=== PATIENT | female | born 1955 | race Caucasian/White ===

== ENCOUNTER 2024-12-18 22:10 | Inpatient (IN) | payer MEDICARE, SELFPAY ==
[2024-12-18 19:35] VITALS: BMI 37.2
[2024-12-18 19:37] VITALS: BP 172/83
[2024-12-18 19:41] VITALS: BP 172/83
--- NOTE | 2024-12-18 19:43 | ED.CVA ---
History of Present Illness
General
Chief Complaint: CVA/TIA Symptoms
Time Seen by Provider: 12/18/24 19:37
Onset of Stroke Symptoms
Onset of symptoms known: No
Time pt last seen normal is known: No
History of Present Illness
History of Present Illness:
Patient is a 69-year-old female with a history of alcohol use disorder who presents to the emergency department with altered mental status and left-sided neurologic symptoms. Unknown last well as patient does not endorse any neurologic symptoms.
She states she fell off of her chair today and called 911. She was last seen on Wednesday. Notes daily alcohol use last drink was today. She did not realize that she had loss of sensation on the left side of her body. Patient is a poor historian
Past History
Past History
ED Past Medical History: Hypercholesterolemia, Hypothyroidism and Other (Hyperlipidemia, diverticulosis, diverticulitis.)
Social History
Tobacco: Non-smoker
Alcohol: Occasional
Drug: None
Personal:
Living: with family
Employment: Employed
Family History
Family History: Other (Noncontributory)
Phy Exam
Physical Exam
Physical Exam:
GENERAL APPEARANCE: NAD, well developed/ well nourished
EYES lids/conjunctiva normal
EARS/NOSE/THROAT Mucous membranes moist,
HEAD/NECK normocephalic atraumatic, neck is supple.
RESPIRATORY respiratory effort normal, speaks in full sentences, no accessory muscle use. Lungs clear to auscultation without rhonchi, wheezes, rales
CARDIAC Regular rate and rhythm, no edema.
ABDOMINAL Soft, ND/NT.
MUSCLES/EXTREMITIES No abnormal range of motion, no swelling.
SKIN Warm, pink and dry. No rashes
NEUROLOGICAL patient is awake alert and oriented x 3. Cranial nerves II through XII are intact. She has 5 out of 5 pattern cleaner strength bilaterally. She has poor coordination with her left upper and lower extremity. She has loss of sensation to the
left upper and lower extremity as well as her trunk. There is ataxia to the left upper extremity and left lower extremity. There is hemiballismus/hemichorea in the LUE
PSYCH Normal mood and affect. Judgement/competence is appropriate
Course
Orders/Labs/Results
Orders:
Orders
12/18/24 19:35
Electrocardiogram (*1) Urgent
Reason for Study: TIA/Stroke
EKG- Treatment ONCE
12/18/24 19:45
Alcohol Urgent
Complete Blood Count/With Diff Urgent
Comprehensive Metabolic Panel Urgent
12/18/24 19:49
CT BRAIN PERF STROKE ALERT Urgent
Comment:
Reason For Exam: L sided hemisensory loss, ataxia
CT HEAD STROKE ALERT W/o Cont Urgent
Comment:
Reason For Exam: L sided hemisensory loss, ataxia
CT HEAD/NECK ANG STROKE ALERT Urgent
Comment:
Reason For Exam: L sided hemisensory loss, ataxia
0.9% Sodium Chloride 500 ml [Nss] 500 ml IV BOLUS
12/18/24 19:50
Electrocardiogram (*1) Stat
Reason for Study: Other
Other Reason for Exam: neuro symptoms
12/18/24 20:29
0.9% Sodium Chloride 1000 ml [Nss] 1,000 ml IV BOLUS
12/18/24 20:38
Urine Drug Abuse Screen Urgent
Date Specimen was Collected: 12/18/24
Time Specimen was Collected: 20:38
12/18/24 20:42
Urinalysis Reflex To Culture Urgent
Date Specimen was Collected: 12/18/24
Time Specimen was Collected: 20:38
Urine Microscopic Reflex Cult Urgent
12/18/24 20:48
Aspirin 325 mg PO NOW STA
Clopidogrel Bisulfate [Plavix] 600 mg PO NOW STA
12/18/24 21:31
Admit/Transfer Patient As Directed
Co-Sign Provider:
Level of Care: Inpatient admission
Assign to:: ICU
Physician / Group: avril austin
Diagnosis: CVA
Reason for Hospitalization: CVA
Expected length of stay greater than two midnights?: Yes
ELOS- Estimated Length of Stay in days: 3
I certify the patient meets the requirements for IP care: Yes
12/18/24 21:33
PRN Pain Medication Management As Directed
May give lesser potent ordered pain med per pt: Yes
preference::
Protocol:: Medication orders for pain may be administered in a
manner that supports deferring to patient preference
when the pt is:
- Requesting an ordered lesser potent pain medication.
Least to most potent pain medications are defined
as: acetaminophen < NSAID < tramadol < opioids
(morphine, oxycodone, hydromorphone).
- Requesting a lesser dose of the same medication IF
ORDERED.
- Requesting a less intrusive route of administration
if both routes are prescribed by the provider (PO <
IV).
12/18/24 21:34
Code Status As Directed
Resuscitation Status: Full Code
12/18/24 21:55
[employer] Consult Routine
Consulting Provider: Savita Milian
Was physician already notified: Yes
Abnormal Lab Results
12/18/24 12/18/24 12/18/24
19:45 19:51 20:42
Hgb 16.6 H g/dL
(12.0-16.0)
Hct 47.4 H %
(37.0-47.0)
MCV 100.4 H fL
(81.0-99.0)
MCH 35.2 H pg
(27.0-31.0)
Absolute Neuts (auto) 6.6 H 10^3/uL
(1.4-6.5)
Neutrophils % 78.2 H %
(42.2-75.2)
Lymphocytes % 13.8 L %
(20.5-51.1)
Carbon Dioxide 20 L mmol/L
(22-30)
Glucose 152 H mg/dl
(70-99)
Ur Occult Blood Reflex 2+ A
(Negative)
Urine RBC 3-6 A /HPF
(0-2)
Urine Bacteria (Reflex) Few A
(Negative)
Urine Albumin (Reflex) 2+ A
(Neg - Trace)
POC Glucose 154 H mg/dl
(70-99)
12/18/24 19:45
12/18/24 19:45
Vital Signs
Initial and Last Documented VS:
Initial Vital Signs
BP
172/83
12/18/24 19:37
Last Documented Vital Signs
Temp Pulse Resp BP Pulse Ox
98.3 F 73 15 174/89 97
12/18/24 19:40 12/18/24 22:45 12/18/24 22:45 12/18/24 22:04 12/18/24 22:30
*Pulse Oximetry
SaO2: 93
Oxygen Mode of Delivery: Room air
Patient hypoxic: no
*Critical Care Note
Total Time (30-74mins, 75-104mins- exclusive of procedures): Not Applicable
ED Attending Note
ED Attending Note
ED Attending Note:
Patient presents with left-sided sensory symptoms and coordination difficulty and possibly some neglect on the left. There is an unclear last known well. Stroke alert called on arrival. CT scan already showing evidence of right MCA infarct. CTA
showing occlusion of the right ICA. NIH stroke score is 5. Consulted [facility] neurostroke team, Dr. Lane. I reviewed the case and images with her. She states that given the lack of known last well as well as imaging findings already showing
stroke, she would not recommend TNK at this time. There is no intervention for IAT that she would recommend at this time given low NIH stroke scale and occlusion proximal to the M1 branch. She recommends dual antiplatelet therapy with loading of
Plavix and aspirin at this time. She recommends permissive hypertension. She feels that patient can stay at [facility].
-
Portions of this chart may have been created with voice recognition software.� Occasional wrong word or��sound alike� substitutions may have occurred due to the inherent limitations of voice recognition software.
Discharge Plan
Departure
Patient Disposition: Admit
Date of Disposition: 12/18/24
Time of Disposition: 20:53
Presentation/result/management discussed w/ accepting MD/DO: Hospitalist
Discharge Problem:
Acute CVA (cerebrovascular accident)
Interventions
Interventions:
*Risk Screen - Suicide Last Done: 12/18/24 19:42
*General Assessment Last Done: 12/18/24 19:42
*Neglect/Abuse Screening Last Done: 12/18/24 19:42
*ED COVID-19 Vaccine History Last Done: 12/18/24 19:42
ED- Cardiac Assessment Last Done: 12/18/24 20:48
ED- Neurological Assessment Last Done: 12/18/24 20:48
ED- Pulmonary Assessment Last Done: 12/18/24 20:48
ED Swallowing Screen Last Done: 12/18/24 21:02
[2024-12-18 19:53] LABS: Glucose - Point of Care 154 mg/dl (70-99)
[2024-12-18 19:55] LABS: Hematocrit 47.4 % (37.0-47.0); Hemoglobin 16.6 g/dL (12.0-16.0); Mean Corp Hgb Conc. 35.0 g/dL (33.0-37.0); Mean Corpuscular Volume 100.4 fL (81.0-99.0); Nucleated Red Blood Cells % 0 %; Platelet Count 188 10^3/uL (130-400); Red Cell Dist. Width 12.7 % (11.5-14.5)
[2024-12-18 20:21] LABS: ALT (SGPT) 20 U/L (0-35); AST (SGOT) 23 U/L (14-36); Albumin 4.7 g/dl (3.5-5.0); Alkaline Phosphatase 94 U/L (38-126); Blood Urea Nitrogen 9 mg/dl (7-17); Calcium 9.8 mg/dl (8.4-10.2); Carbon Dioxide 20 mmol/L (22-30); Chloride 107 mmol/L (98-107); Estimated Creatinine Clearance 100 ml/min; Glucose 152 mg/dl (70-99); Potassium 4.0 mmol/L (3.5-5.1); Sodium 137 mmol/L (135-145); Total Protein 7.5 g/dl (6.3-8.2); eGFR > 60.00
[2024-12-18] MEDS: NSS 1000 IV (20:29)
[2024-12-18 20:40] VITALS: BP 180/92
[2024-12-18 20:49] LABS: Urine Character Clear (Clear)
[2024-12-18 20:55] LABS: Urine White Cell 0-2 /HPF (0-5)
[2024-12-18 21:00] VITALS: BP 165/88
[2024-12-18] MEDS: ASPIRIN 325 MG PO (21:04)
[2024-12-18] MEDS: PLAVIX 600 MG PO (21:04)
--- NOTE | 2024-12-18 21:06 | HPS.HSE ---
Addendum entered and electronically signed by Preeti Monae DO 12/18/24 21:54:
The patient is seen and examined. I have reviewed the patient along with the nurse practitioner, Rach and I reviewed and agree with her history and physical and assessment and plan of care as per below. I spoke to the emergency department
physician about the patient as well. The patient's daughters are in the room with her. The patient fell out of a chair, earlier today and she is unable to tell exactly when. She called her daughter who noticed that her speech was slurred and they
called EMS. On arrival to the emergency department the patient was noted to have left-sided ataxia and hemiballism with sensory loss on the left side upper and lower extremity. She is found to have an acute moderate-sized transcortical ischemic
infarct in the right parietal lobe and a small acute transcortical ischemic infarct in the right frontal lobe associated with cytotoxic edema. CTA of the head and neck was performed which shows complete occlusion of the proximal right ICA, less
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
segment of the left posterior cerebral artery.
The ED provider spoke to stroke neurology at [facility], Dr. Lane, who said the patient is not a candidate for acute intervention at this time given her NIHSS score of 5, unknown last well, and location of the occlusion. The recommendation from [facility]
stroke neurology was for loading of Plavix and aspirin and permissive hypertension. The patient has been able to eat and drink in the emergency department, she currently has no aphasia nor slurred speech. She is unable to tell us the timing of
last known normal motor and sensory function. Of note, she drinks 16 ounces approximately of wine daily. She denies history of alcohol withdrawal seizures nor history of delirium tremens or hallucinations with alcohol withdrawal. She has gone
several days without drinking and has not had withdrawals in the past per the patient.
Vital signs reviewed blood pressure 172/83
Neuro exam left-sided upper and lower extremity hemiballism and sensory loss, motor strength is intact, cranial nerves II through XII are intact
Cardiovascular regular rate and rhythm no murmurs rubs or gallops
Lungs are clear to auscultation bilaterally no wheezes rales rhonchi
Abdomen is soft nontender normoactive bowel sounds
# Acute transcortical ischemic infarct of the right parietal lobe and right frontal lobe
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
-Admit to the intensive care unit overnight for close monitoring of neurologic status
- Continue aspirin and Plavix daily
-Neurochecks
-Permissive hypertension
-MRI of the head and neck
-Echocardiogram
-Neurology consultation appreciated
# Alcohol use disorder
-Monitor closely for alcohol withdrawal symptoms and treat accordingly
Additional assessment and plan of care as per below
Original Note:
Family Physician
-
Family Physician:
Chief Complaint
-
weakness
History of Present Illness
69-year-old female with a history of alcohol use disorder, hyperlipidemia, hypothyroidism, diverticulitis who presents to the emergency department because she fell off the chair. she was not able to get up from the floor. she called 911. denied WRIGHT,
dizzy or syncope.denied fever, chills,chest pain,sob. denied abdominal pain,n,v,d. denied dysuria or hematuria.
upon arrival head neck CTA with COMPLETE OCCLUSION of the PROXIMAL RIGHT ICA. Less than 50% diameter stenosis in the proximal left ICA. head CT with MODERATE SIZED ACUTE TRANSCORTICAL ISCHEMIC INFARCT in the right parietal lobe and small acute
transcortical ischemic infarct in the right frontal lobe (right middle cerebral artery territory) with associated cytotoxic edema.
Patient received aspirin, Plavix, normal saline in the ER. Admitted for further management
Medical History
Past Medical History
Past Medical History: Reports Other
Additional Past Medical History:
Hypothyroidism, hyperlipidemia
Past Surgical History: Reports Other
Additional Past Surgical History:
Left knee replacement, cataract surgery
Social History
Tobacco: Smoker (1 pack daily)
Alcohol: Daily
Drug: None
Personal: Single
Living: Alone
Family History
Family History: Not pertinent
Allergies / Home Medications
Allergies reflects when Allergies were last updated in [facility].
Home Medications with original date entered in [facility]
Allergy/Medication List:
Allergies
Allergy/AdvReac Type Severity Reaction Status Date / Time
No Known Allergies Allergy Unverified 05/29/14 16:08
Home Medications
levothyroxine 175 mcg tablet 175 mcg PO DAILY 05/29/14
simvastatin 40 mg tablet 40 mg PO DAILY 05/29/14
Review of Systems
-
Constitutional: Reports No Symptoms
EENT: Reports No Symptoms
Respiratory: Reports No Symptoms
Cardiac: Reports No Symptoms
Abdomen/GI: Reports No Symptoms
: Reports No Symptoms
Musculoskeletal: Reports No Symptoms
Skin: Reports No Symptoms
Neurological: Reports No Symptoms
Endocrine: Reports No Symptoms
Hematologic/Lymphatic: Reports No Symptoms
Psych: Reports No Symptoms
Physical Exam
Vital Signs
Vital Signs
Temp Pulse Resp BP Pulse Ox
98.3 F 77 20 172/83 93
12/18/24 19:40 12/18/24 20:15 12/18/24 20:15 12/18/24 19:41 12/18/24 20:00
Physical Exam
General: Well Developed, Well Nourished and No Apparent Distress
HEENT: NormoCephalic, Moist mucous membranes and Atraumatic
Respiratory: Clear
Cardiac: S1/S2 and Regular Rhythm; No Murmur or Rub
GI: Soft, Non Tender, Non Distended and Normal Bowel Sounds; No Organomegaly
Rectal: Deferred by Provider
Musculoskeletal: No Clubbing, No Cyanosis and No Edema
Skin: No Rash
Neuro: Nonfocal/grossly intact and Other (Involuntary left-sided movements)
Psych: Calm
Laboratory Results
-
12/18/24 19:45
12/18/24 19:45
Laboratory Results
Total Bilirubin 0.8 mg/dl (0.2-1.3) 12/18/24 19:45
AST 23 U/L (14-36) 12/18/24 19:45
ALT 20 U/L (0-35) 12/18/24 19:45
Alkaline Phosphatase 94 U/L (38-126) 12/18/24 19:45
Data Reviewed
-
CT Scan: Report Reviewed by me
Lab Data: Labs Reviewed by me
Impression/Plan
-
# Acute CVA
- CT head showing MODERATE SIZED ACUTE TRANSCORTICAL ISCHEMIC INFARCT in the right parietal lobe and small acute transcortical ischemic infarct in the right frontal lobe (right middle cerebral artery territory) with associated cytotoxic edema.
- CTA showing right ICA occlusion.Less than 50% diameter stenosis in the proximal left ICA.
- Aspirin and Plavix continued
- Obtain MRI and echocardiogram
-allow permissive HTN
- Neurology consulted
# Hypothyroidism
- Levothyroxine continued
# Hyperlipidemia
- Simvastatin continued
#alcohol abuse
-Nicotine dependence
-nicotine patch
-alcohol protocol
-monitor MSAS score
# DVT prophylaxis
- SCDs
# CODE STATUS
- Full code
[2024-12-18 22:04] VITALS: BP 174/89
[2024-12-18 23:35] LABS: Magnesium 2.0 mg/dl (1.6-2.3)
[2024-12-19] VITALS (14 sets, daily range): BP systolic 127–192; BP diastolic 65–130; PULSE 65; BMI 35.2
[2024-12-19] MEDS: THIAMINE INJECTION 200 MG IV ×3 (02:36→15:40)
--- NOTE | 2024-12-19 03:04 | PTCARENOTE ---
Pt admit to ICU from ED. NIH 3. Sensory issues, extinction/inattention, and slight ataxia in LUE/LLE. No slur on admit. Pt with frequent movement in LUE/LLE that pt's family states is new to tonight, tho improved since admission to ED. Refusing
nictoine patch overnight, states is open to getting one during the daytime. Voiding yellow urine.
[2024-12-19 04:17] LABS: Hematocrit 42.8 % (37.0-47.0); Hemoglobin 14.7 g/dL (12.0-16.0); Mean Corp Hgb Conc. 34.3 g/dL (33.0-37.0); Mean Corpuscular Volume 101.4 fL (81.0-99.0); Platelet Count 169 10^3/uL (130-400); Red Cell Dist. Width 12.6 % (11.5-14.5)
[2024-12-19 04:33] LABS: INR 0.99; PT 13.4 Sec (11.4-14.6)
[2024-12-19 04:34] LABS: APTT 25.2 Sec (23.4-35.0)
[2024-12-19 04:40] LABS: Blood Urea Nitrogen 7 mg/dl (7-17); Calcium 9.2 mg/dl (8.4-10.2); Carbon Dioxide 27 mmol/L (22-30); Chloride 109 mmol/L (98-107); Estimated Creatinine Clearance 100 ml/min; Glucose 110 mg/dl (70-99); HDL Cholesterol 62 mg/dl; LDL Cholesterol, Calculated 102 mg/dl; Potassium 4.3 mmol/L (3.5-5.1); Sodium 138 mmol/L (135-145); Very Low Density Lipoprotein 43 mg/dl (0-30); eGFR > 60.00
[2024-12-19 04:43] LABS: GGTP 68 U/L (12-43); Magnesium 2.2 mg/dl (1.6-2.3)
--- NOTE | 2024-12-19 06:38 | PTCARENOTE ---
Pt continues to be oriented but agitated at times. Continues to follow all commands. Pt removed pulsox, BP cuff, and SCDs by self. Turning in bed by self.
--- NOTE | 2024-12-19 07:18 | W.PN.HOSP.TC ---
Addendum entered and electronically signed by Mily Oneil MD 12/19/24 09:26:
Neuro Exam: speech clear this morning, GEORGE, EOMI, no facial droop; LUE pronator drift; 3/5 strength; 5/5 strength b/l LE
Original Note:
Today's Communication/Plan
-
transfer to tele
asa/plavix
MRI
TTE
Neurology consult
PT/OT/ST
Assessment / Plan
Assessment / Plan
Ms. Carol Key is a 69 yo woman with hx alcohol abuse presents to the ER after slid from chair, called daughter who noticed slurred speech.
On arrival to the emergency department the patient was noted to have left-sided ataxia and hemiballism with sensory loss on the left side upper and lower extremity. She is found to have an acute moderate-sized transcortical ischemic infarct in
the right parietal lobe and a small acute transcortical ischemic infarct in the right frontal lobe associated with cytotoxic edema. CTA of the head and neck was performed which shows complete occlusion of the proximal right ICA.
The ED provider spoke to stroke neurology at [facility], Dr. Lane, who said the patient is not a candidate for acute intervention at this time given her NIHSS score of 5, unknown last well, and location of the occlusion. The recommendation from [facility]
stroke neurology was for loading of Plavix and aspirin and permissive hypertension. The patient has been able to eat and drink in the emergency department, she currently has no aphasia nor slurred speech. She is unable to tell us the timing of
last known normal motor and sensory function. Of note, she drinks 16 ounces approximately of wine daily.
HEAD CT
IMPRESSION:
1. MODERATE SIZED ACUTE TRANSCORTICAL ISCHEMIC INFARCT in the right parietal lobe and small acute transcortical ischemic infarct in the right frontal lobe (right middle cerebral artery territory) with associated cytotoxic edema.
2. No CT evidence for acute intracranial hemorrhage.
HEAD/NECK CTA
IMPRESSION:
NECK CTA:
1. COMPLETE OCCLUSION of the PROXIMAL RIGHT ICA.
2. Less than 50% diameter stenosis in the proximal left ICA.
3. 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
4. Severe bilateral facet joint arthrosis in the cervical spine causing severe bilateral neural foraminal narrowing.
5. Mild multilevel spinal cord compression and central canal stenosis secondary to multilevel discogenic degenerative disease.
HEAD CTA:
1. Collateral blood supply from the left intracranial ICA reaching the right anterior and middle cerebral arteries.
2. Moderate calcific atherosclerotic plaque in the intracranial left ICA causing less than 50% diameter stenosis.
3. 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
4. Moderate hypoplasia of the P1 segment of the left posterior cerebral artery.
5. Moderate sized acute transcortical ischemic infarct in the right parietal lobe.
CXR
IMPRESSION:
Minor bibasilar subsegmental atelectasis.
# Acute transcortical ischemic infarct of the right parietal lobe and right frontal lobe
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
-out of window for tPA
-Admitted to ICU - OK to transfer to tele
-Continue aspirin and Plavix daily
-Neurochecks
-Permissive hypertension
-MRI of the head
-Echocardiogram
-Neurology consultation
# Alcohol use disorder
-Monitor closely for alcohol withdrawal symptoms and treat accordingly
#tobacco use - cessetion educated provided, patient does not want a nicotine patch
# Hypothyroidism
- Levothyroxine continued
# Hyperlipidemia
- Simvastatin continued
#alcohol abuse
-Nicotine dependence
-nicotine patch
-alcohol protocol
-monitor MSAS score
# DVT prophylaxis
- SCDs
# CODE STATUS
- Full code
Anticipated Discharge: 24 - 48 hours
Subjective/Interval History
-
Date of Service: December 19, 2024
she denies headache
no fevers/chills
Objective Data
-
Labs:
Laboratory Results
12/18/24 12/19/24
19:45 04:05
WBC 8.4 8.2
Hgb 16.6 H 14.7
Hct 47.4 H 42.8
Plt Count 188 169
PT 13.4
INR 0.99
APTT 25.2
Sodium 137 138
Potassium 4.0 4.3
Chloride 107 109 H
Carbon Dioxide 20 L 27
BUN 9 7
Creatinine 0.6 0.6
Glucose 152 H 110 H
Calcium 9.8 9.2
Total Bilirubin 0.8
AST 23
ALT 20
Alkaline Phosphatase 94
Vital Signs:
Vital Signs
Temp Pulse Resp BP Pulse Ox
98.1 F 66 16 156/110 98
12/19/24 02:00 12/19/24 05:15 12/19/24 05:15 12/19/24 04:06 12/19/24 04:06
Review of Systems
-
History Source: Patient
All other systems: Reviewed and negative
Physical Exam
-
General: No Apparent Distress
HEENT: PERRLA
Respiratory: Clear to Auscultation; Negative Wheezes
Cardiac: Regular Rhythm and S1/S2
Data Reviewed
-
Diagnostic Radiology: Report Reviewed by me
Labs: Labs Reviewed by me
[2024-12-19] MEDS: SYNTHROID 175 MCG PO (07:24)
--- NOTE | 2024-12-19 08:00 | PTCARENOTE ---
recd pt 0710 neuro handoff at bedside. pt is alert and conversive, forgetful at times and very blustery in trying to follow directions. purewick in place but pt with c/o using it, aware of need for assist to get to [facility]. took am meds easily,
ordered and awaiting breakfast.
--- NOTE | 2024-12-19 08:15 | CON.NEURO ---
Addendum entered and electronically signed by Sánchez Meyer MD 12/19/24 13:56:
Studies reviewed.
I have personally examined the patient. I reviewed and agree with the CLAY MAKER's Note.
My addenda:
Irritable
Awake, alert, interactive. No acute distress.
Speech intact.
Follows 2-step requests w/o difficulty. No tremor.
Extra-ocular movements grossly intact.
Facial movements full and symmetric. Hearing intact to normal conversational volume.
Normal UE movements bilaterally.
Neck: full ROM.
Chest: no dyspnea
Heart: no JVD
Ext: (-) Clubbing, (-) Cyanosis, (-) Edema
IMPRESSIONS/RECOMMENDATIONS:
Abrupt onset of left-sided weakness and ataxia in a patient with prior history of alcohol use disorder and exam findings suggestive of the left upper extremity weakness
Most likely diagnosis is a right parietal acute ischemic stroke which was suggested by unenhanced CT of the head. CT perfusion also suggested a right parietal acute ischemic stroke.
Check MRI of brain as planned
Provide patient with combination aspirin and clopidogrel for 21 days, then aspirin alone
Follow lipid profile, provide atorvastatin 80 mg daily as replacement for at home simvastatin 40 mg daily based on the LDL greater than 70
Watch for alcohol withdrawal symptoms
Unfortunately, no therapy available for occlusion of the proximal right ICA
Goal of normotension, starting 24 hours after onset of symptoms, until then, permissive hypertension up to 220/120
Goal of normoglycemia
D/W patient
All questions answered.
Will continue to follow pending results.
Original Note:
Documented by User: Rachel Zarate NP 12/19/24 10:37
Neuro Assessment/Plan
Assessment
69-year-old female with a history of alcohol use disorder, hyperlipidemia, hypothyroidism, diverticulitis who presents to [facility] on 12/18/2024 s/p fall from chair now with left sided weakness and ataxia.
Head CT:
1. MODERATE SIZED ACUTE TRANSCORTICAL ISCHEMIC INFARCT in the right parietal lobe and small acute transcortical ischemic infarct in the right frontal lobe (right middle cerebral artery territory) with associated cytotoxic edema.
2. No CT evidence for acute intracranial hemorrhage.
ASPECT score: 7
NECK CTA:
1. COMPLETE OCCLUSION of the PROXIMAL RIGHT ICA.
2. Less than 50% diameter stenosis in the proximal left ICA.
3. 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
4. Severe bilateral facet joint arthrosis in the cervical spine causing severe bilateral neural foraminal narrowing.
5. Mild multilevel spinal cord compression and central canal stenosis secondary to multilevel discogenic degenerative disease.
HEAD CTA:
1. Collateral blood supply from the left intracranial ICA reaching the right anterior and middle cerebral arteries.
2. Moderate calcific atherosclerotic plaque in the intracranial left ICA causing less than 50% diameter stenosis.
3. 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
4. Moderate hypoplasia of the P1 segment of the left posterior cerebral artery.
5. Moderate sized acute transcortical ischemic infarct in the right parietal lobe.
Labs: Hgb A1C pending, Cholesterol 207, LDL 102
Plan
Impression:
I. abrupt onset of left sided ataxia and sensory loss due to right MCA stroke
II. 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
-check MRI brain without contrast
-BP goal is normotension.
-continue aspirin 81 mg and clopidogrel 75 mg daily
-check hemoglobin A1C. Goal is normoglycemia.
-current LDL 102 with goal <70, increase atorvastatin from 40 mg to 80 mg nightly
-PT/OT/ST evaluations
-DVT prophylaxis
-neurochecks and NIHSS per unit guidelines
-education material to be provided
All questions encouraged and answered, plan of care discussed with Dr. Meyer, hospitalist and patient
Consultation
Order
Date of Consultation: 12/19/24
Requesting Provider: hospitalist
Reason for Consult: left sided ataxia and seonsory loss
Subjective/Objective
Subjective Data
Date of Service: December 19, 2024
69-year-old female with a history of alcohol use disorder, hyperlipidemia, hypothyroidism, diverticulitis who presented to [facility] on 12/18/2024 s/p fall from chair. Patient is a vague and poor historian. All information obtained from chart. She states
she fell off of her chair the day of admission and called 911. She called her daughter after incident who noticed slurred speech. She was last seen on Wednesday. Notes daily alcohol use last drink was day of admission. She did not realize that she
had loss of sensation on the left side of her body. She was a stroke alert on arrival to the ED NIHSS was 5 for left sided ataxia and sensation loss. CT scan showed evidence of right MCA infarct. CTA showed occlusion of the right ICA. [facility] [place]
neurostroke team, Dr. Doherty was consulted and TNK was not recommended. IAT not recommended given low NIH stroke scale and occlusion proximal to the M1 branch. She was loaded with Plavix and aspirin. Of note, she drinks 16 ounces approximately of
wine daily. She denies history of alcohol withdrawal seizures nor history of delirium tremens or hallucinations with alcohol withdrawal. She has gone several days without drinking and has not had withdrawals in the past per the patient.
Currently patient minimally cooperative. Her exam shows left upper extremity and left lower extremity drift and left sided sensory loss. Current NIHSS 5. No aphasia or dysarthria, denies vision changes. Denies balance or gait abnormalities. Denies
focal weakness. Awaiting brain MRI.
Objective Data
Vital Signs
Temp Pulse Resp BP Pulse Ox
98.1 F 66 16 156/110 98
12/19/24 02:00 12/19/24 05:15 12/19/24 05:15 12/19/24 04:06 12/19/24 04:06
Lab Results
12/19/24 04:05
12/19/24 04:05
PT 13.4 Sec (11.4-14.6) 12/19/24 04:05
INR 0.99 12/19/24 04:05
APTT 25.2 Sec (23.4-35.0) 12/19/24 04:05
Sodium 138 mmol/L (135-145) 12/19/24 04:05
Potassium 4.3 mmol/L (3.5-5.1) 12/19/24 04:05
BUN 7 mg/dl (7-17) 12/19/24 04:05
Glucose 110 mg/dl (70-99) H 12/19/24 04:05
Calcium 9.2 mg/dl (8.4-10.2) 12/19/24 04:05
Phosphorus 4.1 mg/dl (2.5-4.5) 12/19/24 04:05
LDL Cholesterol, Calc 102 mg/dl 12/19/24 04:05
Ur Buprenorphine Negative (Negative) 12/18/24 20:38
Patient Allergies
No Known Allergies Allergy (Unverified 05/29/14 16:08)
CVA Assessment
Onset of Stroke Symptoms
Onset of symptoms known: No
Time pt last seen normal is known: No
NIH Stroke Score
Level of Consciousness: 0 - Alert
LOC Questions: 0-Answers both correctly
LOC Commands: 0-Performs both correctly
Best Horizontal Gaze: 0-Normal
Visual Newell: 0=Normal, no visual loss
Facial Palsy: 0=Normal, symmetrical
Motor - Right Arm: 0=No drift 10 seconds
Motor - Left Arm: 1=Drift < 10 seconds
Motor - Right Le-No drift 5 seconds
Motor - Left Le-Drift < 5 seconds
Limb Ataxia: 2-Present in two limbs
Sensation: 0-Normal
Best Language: 0-No aphasia
Dysarthria: 0-Normal
Extinction and Inattention: 1-Sensory inattention
NIH Total Score:: 5
Tenecteplase Contraindications
Inclusion and Exclusion criteria reviewed: Yes
IAT Contraindications: >6 hrs from onset/last seen normal and NIHSS < 6
Modified Aurelia Score (MRS)
-
Modified Richland Scale (mRS): Slight disability. Able to look after own affairs.
Score: 2
Physical Exam
-
General: No Apparent Distress
HEENT: Normocephalic, Atraumatic and Anicteric
Neck: Full Range of Motion
Respiratory: No Dyspnea
Cardiac: No JVD
Data Reviewed
-
CT Head: Report Reviewed and Image Reviewed
MRI Head: Ordered
Labs: Report Reviewed
Lipid Profile: Report Reviewed
Medications
-
Active Medications
Generic Name Dose Route Start Last Admin
Trade Name Freq PRN Reason Stop Dose Admin
Acetaminophen 650 mg 12/19/24 00:17
Acetaminophen 650 Mg Rectal Suppository RECTAL 01/16/25 00:16
Q4HPRN PRN
WRIGHT, mild pain, or temp >100.4F
Acetaminophen 650 mg 12/19/24 00:17
Acetaminophen 325 Mg Tablet PO 01/16/25 00:16
Q4HPRN PRN
WRIGHT, mild pain, or temp >100.4F
Aspirin 81 mg 12/19/24 08:00
Aspirin 81 Mg Chewable Tablet PO 01/16/25 07:59
DAILY GUSTAVO
Atorvastatin Calcium 40 mg 12/19/24 08:00
Atorvastatin (Lipitor) 20 Mg Tablet PO 01/16/25 07:59
DAILY GUSTAVO
Clopidogrel Bisulfate 75 mg 12/19/24 08:00
Clopidogrel 75 Mg Tablet PO 01/16/25 07:59
DAILY GUSTAVO
Folic Acid 1 mg 12/19/24 08:00
Folic Acid 1 Mg Tablet PO 01/16/25 07:59
DAILY GUSTAVO
Folic Acid 1 mg/ Sodium 50.2 mls @ 200.8 mls/hr 12/19/24 00:17
Chloride IV 01/16/25 00:16
DAILYPRN PRN
if NPO
Levothyroxine Sodium 175 mcg 12/19/24 06:00 12/19/24 07:24
Levothyroxine 175 Mcg Tablet PO 01/16/25 05:59 175 mcg
DAILY @ 0600 GUSTAVO Administration
Lorazepam 1 mg 12/19/24 00:17
Lorazepam 1 Mg Tablet PO 01/16/25 00:16
Q2HPRN PRN
MSAS 5-7
Lorazepam 1 mg 12/19/24 00:17
Lorazepam 2 Mg/Ml Vial IV 01/16/25 00:16
Q1HPRN PRN
MSAS 8-11
Lorazepam 2 mg 12/19/24 00:17
Lorazepam 2 Mg/Ml Vial IV 01/16/25 00:16
Q1HPRN PRN
MSAS > 11
Nicotine 21 mg 12/19/24 00:17 12/19/24 02:36
Nicotine 21 Mg Patch TRANSDERM 01/16/25 00:16 Not Given
DAILY GUSTAVO
Pantoprazole Sodium 40 mg 12/19/24 08:00
Pantoprazole 40 Mg Delayed Release Tablet PO 01/16/25 07:59
DAILY GUSTAVO
Sodium Chloride 0 ml 12/19/24 00:17
Sodium Chloride 0.9% (Preservative Free) 10 Ml Vial IV 01/16/25 00:16
PRN PRN
To dilute IV Ativan
Protocol
Sodium Chloride 0 flush 12/19/24 01:00
Sodium Chloride 0.9% (Flush) Syringe IV 01/16/25 00:59
PER PROTOCOL GUSTAVO
Thiamine HCl 200 mg 12/19/24 00:17 12/19/24 02:36
Thiamine (100 Mg/Ml) 2 Ml Vial IV 12/21/24 16:01 200 mg
Q8 GUSTAVO Administration
Thiamine HCl 100 mg 12/22/24 08:00
Thiamine 100 Mg Tablet PO 01/19/25 07:59
BID GUSTAVO
Home Medications
�Medication �Instructions �Recorded
simvastatin 40 mg tablet 40 mg PO DAILY 05/29/14
levothyroxine 200 mcg tablet 200 mcg PO DAILY 12/19/24
levothyroxine 25 mcg tablet 25 mcg PO DAILY 12/19/24
Past History
Past History
ED Past Medical History: Hypercholesterolemia, Hypothyroidism and Other (Hyperlipidemia, diverticulosis, diverticulitis.)
Family/Social History
Tobacco: Non-smoker
Alcohol: Occasional
Drug: None
Personal:
Living: with family
Employment: Employed
Family History: Other (Noncontributory)

Documented by User: Sánchez Meyer MD 12/19/24 13:49
CVA Assessment
NIH Stroke Score
NIH Total Score:: 5
Modified Richland Score (MRS)
-
Score: 2
[2024-12-19] MEDS: LOW STRENGTH ASPIRIN 81 MG PO (08:38)
[2024-12-19] MEDS: PLAVIX 75 MG PO (08:38)
[2024-12-19] MEDS: FOLVITE 1 MG PO (08:38)
[2024-12-19] MEDS: LIPITOR 40 MG PO (08:38)
[2024-12-19 08:40] LABS: Glycohemoglobin (HgbA1c) 5.8 % (4.0-5.6)
[2024-12-19] MEDS: PROTONIX 40 MG PO (10:04)
--- NOTE | 2024-12-19 10:19 | PTCARENOTE ---
Screened by MRI. In and out of bed several times to urinate clear yellow. Complete CHG bath. Tolerating SCDs. Reassured that she will be given premed as ordered prior to MRI.
[2024-12-19] MEDS: ATIVAN 1 MG PO (10:59)
[2024-12-19 11:19] LABS: Urine Character Cloudy (Clear)
--- NOTE | 2024-12-19 11:22 | PTCARENOTE ---
med as noted, to MRI via stretcher on tele pack.
[2024-12-19 11:29] LABS: Urine Red Blood Cell 40-50 /HPF (0-2)
--- NOTE | 2024-12-19 12:15 | TRANSFER ---
returned from MRI via stretcher, report to next RN, taken to 4W for room 414-01, with all belongings, NIH completed at bedside as handoff. settled into bed.
--- NOTE | 2024-12-19 14:18 | CM ---
Addendum entered by Michelle Cantu 12/19/24 14:36:
BCARES notified.
Original Note:
Patient transferred to room #414-1 before CM initial assessment was completed n ICU.
--- NOTE | 2024-12-19 16:52 | FALL ---
Description of Fall:
Patient and patient's daughter at bedside describes that the patient was trying to scoot herself up in the bed, leaning on her left side, which is the side affected by her stroke. Patient slipped out of bed onto her bottom. Denies hitting her head.
Injuries Noted:
Patient sustained a small abrasion to her L buttock. No drainage.
Action Taken:
Bed alarm placed underneath patient. Reinforced the use of the call wagner when making any major positional adjustments. MD notified.
Name of Provider Notified:
Mily Oneil
[2024-12-19] MEDS: LIPITOR 80 MG PO (17:33)
[2024-12-20] VITALS (7 sets, daily range): BP systolic 152–193; BP diastolic 47–99; PULSE 61; O2SAT 95
[2024-12-20] MEDS: THIAMINE INJECTION 200 MG IV ×4 (00:11→23:36)
[2024-12-20] MEDS: SYNTHROID 175 MCG PO (06:13)
--- NOTE | 2024-12-20 07:48 | W.PN.NEURO.1 ---
Today's Communication / Plan
-
BP goal is normotension.
continue aspirin 81 mg and clopidogrel 75 mg daily for total of 21 days, then aspirin alone
Neuro Assessment/Plan
Assessment
Head CT:
1. MODERATE SIZED ACUTE TRANSCORTICAL ISCHEMIC INFARCT in the right parietal lobe and small acute transcortical ischemic infarct in the right frontal lobe (right middle cerebral artery territory) with associated cytotoxic edema.
2. No CT evidence for acute intracranial hemorrhage.
ASPECT score: 7
NECK CTA:
1. COMPLETE OCCLUSION of the PROXIMAL RIGHT ICA.
2. Less than 50% diameter stenosis in the proximal left ICA.
3. 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
4. Severe bilateral facet joint arthrosis in the cervical spine causing severe bilateral neural foraminal narrowing.
5. Mild multilevel spinal cord compression and central canal stenosis secondary to multilevel discogenic degenerative disease.
HEAD CTA:
1. Collateral blood supply from the left intracranial ICA reaching the right anterior and middle cerebral arteries.
2. Moderate calcific atherosclerotic plaque in the intracranial left ICA causing less than 50% diameter stenosis.
3. 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
4. Moderate hypoplasia of the P1 segment of the left posterior cerebral artery.
5. Moderate sized acute transcortical ischemic infarct in the right parietal lobe.
Labs: Hgb A1C pending, Cholesterol 207, LDL 102
69-year-old female with a history of alcohol use disorder, hyperlipidemia, hypothyroidism, diverticulitis who presents to [facility] on 12/18/2024 s/p fall from chair now with left sided weakness and ataxia.
Impression:
I. abrupt onset of left sided ataxia and sensory loss due to right MCA stroke
II. 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
Plan
BP goal is normotension.
continue aspirin 81 mg and clopidogrel 75 mg daily for total of 21 days, then aspirin alone
increased atorvastatin from 40 mg to 80 mg nightly
check B12, folate, sed. rate
PT/OT/ST evaluations
DVT prophylaxis
Will follow as needed.
Subjective/Objective
Subjective Data
Date of Service: December 20, 2024
Objective Data
Vital Signs
Temp Pulse Resp BP Pulse Ox
37.1 C 58 18 173/79 98
12/20/24 03:39 12/20/24 03:39 12/20/24 03:39 12/20/24 03:39 12/20/24 03:39
Lab Results
12/19/24 04:05
12/19/24 04:05
PT 13.4 Sec (11.4-14.6) 12/19/24 04:05
INR 0.99 12/19/24 04:05
APTT 25.2 Sec (23.4-35.0) 12/19/24 04:05
Sodium 138 mmol/L (135-145) 12/19/24 04:05
Potassium 4.3 mmol/L (3.5-5.1) 12/19/24 04:05
BUN 7 mg/dl (7-17) 12/19/24 04:05
Glucose 110 mg/dl (70-99) H 12/19/24 04:05
Calcium 9.2 mg/dl (8.4-10.2) 12/19/24 04:05
Phosphorus 4.1 mg/dl (2.5-4.5) 12/19/24 04:05
LDL Cholesterol, Calc 102 mg/dl 12/19/24 04:05
Ur Buprenorphine Negative (Negative) 12/19/24 07:29
Patient Allergies
No Known Allergies Allergy (Unverified 05/29/14 16:08)
Past History
Past History
ED Past Medical History: CVA, Hypercholesterolemia, Hypothyroidism and Other (Hyperlipidemia, diverticulosis, diverticulitis.)
Social History
Tobacco: Non-smoker
Alcohol: Occasional
Drug: None
Personal:
Living: with family
Employment: Employed
Family History
Family History: Other (Reviewed and noncontributory)
Medications
-
Medications:
Generic Name Dose Route Start Last Admin
Trade Name Freq PRN Reason Stop Dose Admin
Acetaminophen 650 mg 12/19/24 00:17
Acetaminophen 650 Mg Rectal Suppository RECTAL 01/16/25 00:16
Q4HPRN PRN
WRIGHT, mild pain, or temp >100.4F
Acetaminophen 650 mg 12/19/24 00:17
Acetaminophen 325 Mg Tablet PO 01/16/25 00:16
Q4HPRN PRN
WRIGHT, mild pain, or temp >100.4F
Aspirin 81 mg 12/19/24 08:00 12/19/24 08:38
Aspirin 81 Mg Chewable Tablet PO 01/16/25 07:59 81 mg
DAILY GUSTAVO Administration
Atorvastatin Calcium 80 mg 12/19/24 18:00 12/19/24 17:33
Atorvastatin (Lipitor) 80 Mg Tablet PO 01/16/25 17:59 80 mg
QPM GUSTAVO Administration
Clopidogrel Bisulfate 75 mg 12/19/24 08:00 12/19/24 08:38
Clopidogrel 75 Mg Tablet PO 01/16/25 07:59 75 mg
DAILY GUSTAVO Administration
Folic Acid 1 mg 12/19/24 08:00 12/19/24 08:38
Folic Acid 1 Mg Tablet PO 01/16/25 07:59 1 mg
DAILY GUSTAVO Administration
Folic Acid 1 mg/ Sodium 50.2 mls @ 200.8 mls/hr 12/19/24 00:17
Chloride IV 01/16/25 00:16
DAILYPRN PRN
if NPO
Levothyroxine Sodium 175 mcg 12/19/24 06:00 12/20/24 06:13
Levothyroxine 175 Mcg Tablet PO 01/16/25 05:59 175 mcg
DAILY @ 0600 GUSTAVO Administration
Lorazepam 1 mg 12/19/24 00:17
Lorazepam 1 Mg Tablet PO 01/16/25 00:16
Q2HPRN PRN
MSAS 5-7
Lorazepam 1 mg 12/19/24 00:17
Lorazepam 2 Mg/Ml Vial IV 01/16/25 00:16
Q1HPRN PRN
MSAS 8-11
Lorazepam 2 mg 12/19/24 00:17
Lorazepam 2 Mg/Ml Vial IV 01/16/25 00:16
Q1HPRN PRN
MSAS > 11
Nicotine 21 mg 12/19/24 00:17 12/19/24 08:38
Nicotine 21 Mg Patch TRANSDERM 01/16/25 00:16 Not Given
DAILY GUSTAVO
Pantoprazole Sodium 40 mg 12/19/24 08:00 12/19/24 10:04
Pantoprazole 40 Mg Delayed Release Tablet PO 01/16/25 07:59 40 mg
DAILY GUSTAVO Administration
Sodium Chloride 0 ml 12/19/24 00:17
Sodium Chloride 0.9% (Preservative Free) 10 Ml Vial IV 01/16/25 00:16
PRN PRN
To dilute IV Ativan
Protocol
Sodium Chloride 0 flush 12/19/24 01:00
Sodium Chloride 0.9% (Flush) Syringe IV 01/16/25 00:59
PER PROTOCOL GUSTAVO
Thiamine HCl 200 mg 12/19/24 00:17 12/20/24 00:11
Thiamine (100 Mg/Ml) 2 Ml Vial IV 12/21/24 16:01 200 mg
Q8 GUSTAVO Administration
Thiamine HCl 100 mg 12/22/24 08:00
Thiamine 100 Mg Tablet PO 01/19/25 07:59
BID GUSTAVO
[2024-12-20] MEDS: PLAVIX 75 MG PO (07:59)
[2024-12-20] MEDS: LOW STRENGTH ASPIRIN 81 MG PO (07:59)
[2024-12-20] MEDS: PROTONIX 40 MG PO (07:59)
[2024-12-20] MEDS: FOLVITE 1 MG PO (07:59)
--- NOTE | 2024-12-20 09:08 | PTOTSP ---
[facility] Evaluation
No signs of oral/pharyngeal dysphagia.
No obvious dysarthria or aphasia in conversation. Suspect cognitive linguistic impairments in areas of short term memory and executive function (planning, insight/awareness). However, formal testing had to be discontinued due to verbal
agitation/threats from patient.
Recommend:
1. IDDSI Regular 7, Thin Liquids
2. Medications as best tolerated
3. General aspiration and reflux precautions
4. Continue cognitive linguistic testing as able/appropriate
[2024-12-20 10:05] LABS: Folate 8.2 ng/ml (2.76-20); Vitamin B12 510 pg/ml (239-931)
--- NOTE | 2024-12-20 10:46 | W.PN.HOSP.TC ---
Today's Communication/Plan
-
dispo planning, Physiatry consult
Assessment / Plan
Assessment / Plan
Ms. Carol Key is a 69 yo woman with hx alcohol abuse presents to the ER after slid from chair, called daughter who noticed slurred speech.
On arrival to the emergency department the patient was noted to have left-sided ataxia and hemiballism with sensory loss on the left side upper and lower extremity. She is found to have an acute moderate-sized transcortical ischemic infarct in
the right parietal lobe and a small acute transcortical ischemic infarct in the right frontal lobe associated with cytotoxic edema. CTA of the head and neck was performed which shows complete occlusion of the proximal right ICA.
The ED provider spoke to stroke neurology at [place], Dr. Lane, who said the patient is not a candidate for acute intervention at this time given her NIHSS score of 5, unknown last well, and location of the occlusion. The recommendation from [facility]
stroke neurology was for loading of Plavix and aspirin and permissive hypertension. The patient has been able to eat and drink in the emergency department, she currently has no aphasia nor slurred speech. She is unable to tell us the timing of
last known normal motor and sensory function. Of note, she drinks 16 ounces approximately of wine daily.
HEAD CT
IMPRESSION:
1. MODERATE SIZED ACUTE TRANSCORTICAL ISCHEMIC INFARCT in the right parietal lobe and small acute transcortical ischemic infarct in the right frontal lobe (right middle cerebral artery territory) with associated cytotoxic edema.
2. No CT evidence for acute intracranial hemorrhage.
HEAD/NECK CTA
IMPRESSION:
NECK CTA:
1. COMPLETE OCCLUSION of the PROXIMAL RIGHT ICA.
2. Less than 50% diameter stenosis in the proximal left ICA.
3. 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
4. Severe bilateral facet joint arthrosis in the cervical spine causing severe bilateral neural foraminal narrowing.
5. Mild multilevel spinal cord compression and central canal stenosis secondary to multilevel discogenic degenerative disease.
HEAD CTA:
1. Collateral blood supply from the left intracranial ICA reaching the right anterior and middle cerebral arteries.
2. Moderate calcific atherosclerotic plaque in the intracranial left ICA causing less than 50% diameter stenosis.
3. 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
4. Moderate hypoplasia of the P1 segment of the left posterior cerebral artery.
5. Moderate sized acute transcortical ischemic infarct in the right parietal lobe.
CXR
IMPRESSION:
Minor bibasilar subsegmental atelectasis.
MRI
IMPRESSION:
Restricted diffusion within the right frontoparietal region as well as multiple small foci of restricted diffusion more anteriorly within the right frontal lobe consistent with acute infarction. There is no evidence of hemorrhagic transformation.
# Acute transcortical ischemic infarct of the right parietal lobe and right frontal lobe
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
-out of window for tPA
-complete occlusion of ICA, therefore surgical intervention not an option
-Continue aspirin and Plavix daily x 21 days (day 3) then aspirin alone
-continue Lipitor (replaced simvastatin)
-Neurochecks
-s/p 24 hours permissive HTN, patient remains hypertensive. I will start lisinopril today
-appreciate Neurology consult
-PT/OT/ST
-Physiatry consult
Essential HTN
-start Lisinopril
# Alcohol use disorder
-Monitor closely for alcohol withdrawal symptoms and treat accordingly
#tobacco use - cessation educated provided, patient does not want a nicotine patch
# Hypothyroidism
- Levothyroxine continued
# Hyperlipidemia
- Simvastatin continued
#alcohol abuse
-Nicotine dependence
-nicotine patch
-alcohol protocol
-monitor MSAS score
# DVT prophylaxis
- SCDs
# CODE STATUS
- Full code
Anticipated Discharge: Within 24 hours
Subjective/Interval History
-
Date of Service: December 20, 2024
some improved strength left arm
Objective Data
-
Vital Signs:
Vital Signs
Temp Pulse Resp BP Pulse Ox
98.2 F 61 18 182/96 93
12/20/24 07:00 12/20/24 07:00 12/20/24 07:00 12/20/24 07:00 12/20/24 07:00
I&O
12/19/24 12/20/24 12/21/24
06:59 06:59 06:59
Intake Total 720 / 720
Output Total 550 / 550
Balance 170 / 170
Review of Systems
-
History Source: Patient
All other systems: Reviewed and negative
Physical Exam
-
General: No Apparent Distress
HEENT: PERRLA
Respiratory: Clear to Auscultation; Negative Wheezes
Cardiac: Regular Rhythm and S1/S2
GI: Soft and Nontender
Musculoskeletal: No Edema
Neuro: AO x 3 and Other (LUE pronator drift; improving strength )
Psych: Calm
Data Reviewed
-
Diagnostic Radiology: Report Reviewed by me
Labs: Labs Reviewed by me
[2024-12-20] MEDS: ZESTRIL 5 MG PO (11:02)
--- NOTE | 2024-12-20 11:35 | CM ---
Addendum entered by Irene Roldan 12/20/24 14:30:
Per Kang, there was a cancelled d/c unfortunately so there won't be an available bed for patient tomorrow.
Kang spoke w/ patient to offer bed at [facility] and [place] location, however, patient declined. Patient stated to Kang she would like to dc home and have her daughter stay w/ her. Kang advised for patient to discuss w/ CM and therapy
further on safe dc plan
Addendum entered by Irene Roldan 12/20/24 12:15:
Per Kang, has a bed today but will accept patient tomorrow due to BP being high today
Updated hospitalist and patient
ONOFRE MULLER
Report: [phone]

Plan: ONOFRE MULLER tomorrow
Original Note:
Patient seen bedside, initial assessment completed. Patient is a 69-year-old female with a history of alcohol use disorder, hyperlipidemia, hypothyroidism, diverticulitis who presents to the emergency department because she fell off the chair.
Patient resides alone in a 2STH, 8 steps to enter. Patient ambulates w/ a cane and RW. Independent w/ ADLs. Denies SNF/HC hx.
Address, points of contact and insurance verified
PCP: Veronica Duval
Pharmacy: [facility]
Therapy rec acute rehab at d/c. Discussed w/ patient and hospitalist bedside, patient eventually agreed once her questions were answered.
Spoke w/ Kang/ONOFRE Lester liaison, after clinically reviewing, patient is appropriate for acute and will check on bed availability for today and/or tomorrow
Referral placed in careport
ARJUN was previously consulted. [place]/ARJUN was bedside who will return later to speak w/ patient and provide resources since d/c plan is for acute rehab.
Plan: ONOFRE MULLER, pending bed availability
[2024-12-20] MEDS: LIPITOR 80 MG PO (17:00)
[2024-12-21] VITALS (9 sets, daily range): BP systolic 113–189; BP diastolic 57–96; PULSE 57; O2SAT 96
[2024-12-21] MEDS: TYLENOL 650 MG PO (04:53)
[2024-12-21] MEDS: SYNTHROID 25 MCG PO (06:21)
[2024-12-21] MEDS: SYNTHROID 200 MCG PO (06:21)
--- NOTE | 2024-12-21 07:32 | CON.MD ---
Consultation - Medical
-
Chief Complaint:�Stroke
�
History of Present Illness:�69-year-old right-handed female with PMH (as below) presented to [facility] on 12/18/2024 after falling off a chair and not being able to get up. Found to have altered mental status and left-sided neurologic
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 CT of the head with moderate size acute transcortical ischemic infarct in the right parietal lobe and small
acute transcortical ischemic infarct in the right frontal lobe (right middle cerebral artery territory) with associated cytotoxic edema. Seen by neurology, placed on aspirin lifelong and Plavix for 21 days. MRI of the head IMPRESSION: Restricted
diffusion within the right frontoparietal region as well as multiple small foci of restricted diffusion more anteriorly within the right frontal lobe consistent with acute infarction. There is no evidence of hemorrhagic transformation. Placed on
alcohol withdrawal program.
Overall patient is very frustrated about her stroke and feels like she does not know what is going on. She has much of cases that need to be entered by the end of the month that she is worried about getting in on time. She has been very emotional
since the stroke and is anxious about how she will be able to function after this. Continues to have numbness on the left side. Denies any vision concerns. Denies any difficulties with talking or swallowing. Notes only having 1 therapy session
and thought it went well, does not remember bumping into things.
�
Past Medical History:�Alcohol use disorder, hyperlipidemia, hypothyroidism, diverticulitis
Procedure History:�Left knee replacement, cataract surgery
Family History:�None pertinent
�
Social History:�
Functional Level Premorbidly:�Independent with all activities�using cane on the first floor and rolling walker on the second floor
Functional Level Currently:�Min assist transfers, min assist ambulating 50 feet with rolling walker with difficulty bumping walker into objects on the left with left inattention and impaired balance. Impaired left upper and lower extremity
proprioception and kinesthesia. Mod assist toileting, max assist lower extremity self-care. Poor insight into deficits.
�
Tobacco:�Smoking 1 pack daily
Alcohol:�Daily
Drug use:�Denies�
�
Lives with:�Alone
24-hour assistance available:�No
Number of floors:�2
# steps to enter:�8
# steps to second floor: Full flight
Potential First floor set up:�Has powder room on first floor currently being renovated
Driving:�Yes
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
�
�
Allergies:�
Allergy/AdvReac Type Severity Reaction Status Date / Time
No Known Allergies Allergy Unverified 05/29/14 16:08
�
Review of Systems:�
Constitutional: (x) abNormal _fatigue
Eye: (x) Normal _
Ear/Nose/Throat: (x) Normal _
Respiratory: (x) Normal _
Cardiovascular: (x) Normal _
Gastrointestinal: (x) Normal _
Genitourinary: (x) Normal _
Musculoskeletal: (x) Normal _
Integumentary: (x) Normal _
Neurologic: (x) abNormal _stroke with left-sided numbness, difficulty walking
Psychiatric: (x) abNormal _very emotional, frustrated, tearful
Endocrine: (x) Normal _
Hematologic/Lymphatic: (x) Normal _
Allergic/Immunologic: (x) Normal _
�
Medications:�
Active Current Visit Medication List
Category Date Time Status
0.9% Sodium Chloride [Nss (Preservative Free)] Med 12/19/24 00:17 Active
See Protocol IV PRN PRN
Acetaminophen [Tylenol/Feverall] Med 12/19/24 00:17 Active
650 mg RECTAL Q4HPRN PRN
Acetaminophen [Tylenol] Med 12/19/24 00:17 Active
650 mg PO Q4HPRN PRN
Aspirin Chewable [Low Strength Aspirin] Med 12/19/24 08:00 Active
81 mg PO DAILY
Atorvastatin [Lipitor] Med 12/19/24 18:00 Active
80 mg PO QPM
Clopidogrel Bisulfate [Plavix] Med 12/19/24 08:00 Active
75 mg PO DAILY
FOLic ACID [Folvite] Med 12/19/24 08:00 Active
1 mg PO DAILY
FOLic ACID [Folvite] 1 mg Med 12/19/24 00:17 Active
0.9% Sodium Chloride 50 ml [Nss] 50 ml
IV DAILYPRN
Flush (0.9% Sodium Chloride) [Flush (Nss)] Med 12/19/24 01:00 Active
See Dose Instructions IV PER PROTOCOL
Levothyroxine [Synthroid] Med 12/21/24 06:00 Active
200 mcg PO DAILY @ 0600
Levothyroxine [Synthroid] Med 12/21/24 06:00 Active
25 mcg PO DAILY @ 0600
Lisinopril [Zestril] Med 12/20/24 11:00 Active
5 mg PO DAILY
Lorazepam [Ativan] Med 12/20/24 16:43 Active
1 mg PO Q1HPRN PRN
Lorazepam [Ativan] Med 12/19/24 00:17 Active
1 mg PO Q2HPRN PRN
Lorazepam [Ativan] Med 12/19/24 00:17 Active
2 mg IV Q1HPRN PRN
Nicotine [Nicoderm Transdermal] Med 12/19/24 00:17 Active
21 mg TRANSDERM DAILY
Pantoprazole [Protonix] Med 12/19/24 08:00 Active
40 mg PO DAILY
Thiamine HCl [Vitamin B1] Med 12/22/24 08:00 Active
100 mg PO BID
Thiamine Injection Med 12/19/24 00:17 Active
200 mg IV Q8
�
Vitals:�
Temp Pulse Resp BP Pulse Ox
98.3 F 57 20 150/72 94
12/21/24 03:38 12/21/24 03:38 12/21/24 03:38 12/21/24 02:56 12/21/24 03:38
Height 5 ft 4 in
Actual Weight 93.043 kg
Body Mass Index (BMI) 35.2
�
Physical Exam:�
General Appearance/Observation: Well-developed, well-nourished female in no apparent distress.�
Pain/Comfort Assessment: Denies�
Mood/Affect: Tearful and irritable initially, calm and pleasant after discussing her stroke and plans to help her get better
�
Integumentary/Operative Site:�No lesions noted during course of exam
Eyes: Conjunctiva/Lids: normal��� Pupils: pupils equal round and reactive to light and Accommodation
Ears/Nose/Throat: oral mucosa moist, throat clear.������������ Lips/Teeth/Gums: normal
Neck: No muscle spasm or tenderness�
Cardiovascular: Heart: regular, no murmur�
Pulses: dorsalis pedis 2+ bilaterally�
Respiratory: Respiratory Effort/Chest Expansion: normal������ Auscultation: Clear to auscultation bilaterally
Gastrointestinal: abdomen not tender, no distension, normal abdominal bowel sounds
Genitourinary: No Odonnell�
Rectal Exam: Deferred�
Extremities:�Edema: None�Cyanosis: None�Trophic�changes: None
�
Neurology Exam:
Orientation: Alert, Oriented to self, Time, Place�
Memory: Intact for events prior to stroke, poor recall of events since stroke
Repetition: Intact
Comprehension: Intact
Two step command: Intact
Cranial Nerves:
�� CNII:�Pupillary light reflex: Intact���Visual Field: Some difficulty with testing of the left visual field likely related to attention
�� CN III, IV, : Extraocular muscles: Intact�
�� CN V:�Facial Sensation�at�Forehead: Intact,�Maxilla: Intact,�Mandible: Intact
�� CN VII:�Facial movement: Mild left facial weakness
�� CN VIII:�Hearing: Normal
�� CN IX/X:�Speech & swallow: Normal,�Position of Uvula: Midline
�� CN XI:�Shoulder shrug: Decreased on the left
�� CN XII:�Tongue protrusion: Midline
Sensory:
�� Light touch: Intact right upper and lower extremities. Impaired left upper and lower extremities
�
Reflexes:
�� Biceps: 2+ bilaterally
�� Brachioradialis: 2+ bilaterally
�� Triceps: 2+ bilaterally
�� Patellar: 2+ bilaterally
�� Achilles: 2+ bilaterally
�� Babinski: Down going bilaterally
�� Clonus: None
�� Kasandra: Negative bilaterally�
Cerebellar: Dysmetria/Ataxia: None�on right, present on left
Musculoskeletal: Motor: (Manual muscle scale 0-5)�
Muscle SA EF WE EE FF FA HF KE DF EHL PF
Right� 5 5 5 5 5 5 4 5 5 5 5
Left 4 4 4 4 4 3 3+ 5 4 4 4
�
Tone: Normal in all extremities�
Range of Motion: Passively within normal limits in all extremities�
�
Lab Results
Laboratory Data
12/19/24 04:05
12/19/24 04:05
PT 13.4 Sec (11.4-14.6) 12/19/24 04:05
INR 0.99 12/19/24 04:05
APTT 25.2 Sec (23.4-35.0) 12/19/24 04:05
Total Bilirubin 0.8 mg/dl (0.2-1.3) 12/18/24 19:45
GGT 68 U/L (12-43) H 12/19/24 04:05
AST 23 U/L (14-36) 12/18/24 19:45
ALT 20 U/L (0-35) 12/18/24 19:45
Alkaline Phosphatase 94 U/L (38-126) 12/18/24 19:45
Total Protein 7.5 g/dl (6.3-8.2) 12/18/24 19:45
Albumin 4.7 g/dl (3.5-5.0) 12/18/24 19:45
�
Diagnostic Results:�as per HPI�
�
Assessment
69-year-old right-handed female with PMH (Alcohol use disorder, hyperlipidemia, hypothyroidism, diverticulitis�) presented to [facility] on 12/18/2024 after falling off a chair and not being able to get up. Found to have altered mental
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 CT of the head with moderate size acute transcortical ischemic infarct in
the right parietal lobe and small acute transcortical ischemic infarct in the right frontal lobe (right middle cerebral artery territory) with associated cytotoxic edema. Seen by neurology, placed on aspirin lifelong and Plavix for 21 days. MRI of
the head IMPRESSION: Restricted diffusion within the right frontoparietal region as well as multiple small foci of restricted diffusion more anteriorly within the right frontal lobe consistent with acute infarction. There is no evidence of
hemorrhagic transformation. Placed on alcohol withdrawal program.
�
Plan�
PM&R�PT/OT to increase independence with ADLs, improve balance, coordination, endurance, strength, mobility, community reintegration, decreased burden of care on others and family education.�
�
CVA: Secondary prophylaxis with aspirin and Plavix for 21 days (last dose 01/08/25) followed by aspirin lifelong, statin, and blood pressure control (SBP less than 180 and diastolic less than 100 to participate with therapy for ischemic stroke).
Continue to monitor neurologic status.�
Left nondominant hemiparesis: High risk for falls and sliding out of chair/bed. Safety reinforced.�
- Avoid using affected arm to help lift or pull patient as this will cause trauma to the shoulder.
Left Neglect: makes patient at increased risk for falls.� Will need therapy to work on scanning of environment for safe navigation.�
Left hemisensory loss: makes patient at higher risk for falls.
�
HTN: Lisinopril 5 mg daily, monitor closely�
HLD: Statin�
Hypothyroidism: levothyroxine�
Psych: Monitor mood, medications as needed.�
Skin: monitor for pressure sores/rashes/lesions.�
Pain: acetaminophen as needed.�
Bowel: Colace and Senna, PRN bisacodyl.�
Bladder: Time void, PVRs, PRN straight cath.�
Alcohol Abuse: Alcohol cessation education, offering of outpatient alcohol abuse program. On thiamine and folic acid.
Tobacco Abuse: Smoking cessation counseling. Need to find out why smoking whether it is nicotine withdrawal, habit, or oral fixation.� Nicotine transdermal patch
GI Prophylaxis: Pantoprazole�
DVT Prophylaxis: Mechanical suggest enoxaparin for DVT prophylaxis
Pulmonary: Incentive spirometry�
Morbid obesity: Continue to safety counselor patient about diet adjustments to control obesity. Body habitus and increased force to move body and extremities causes further difficulty with functional tasks.�
Safety: Continue to reinforce assistance with all transfers.�
Code Status:� Full code
Dispo�(date/plan/equipment needs): Home with family care.� Social history reviewed.�
Functional and Medical Goals:�Modified Independent with ADL�s, ambulation, transfers�
Discharge Destination:�Acute inpatient rehabilitation�
Summary of recommendations:
-�Discharge Destination:�Acute inpatient rehabilitation
CVA: Secondary prophylaxis with aspirin and Plavix for 21 days (last dose 01/08/25) followed by aspirin lifelong, statin, and blood pressure control (SBP less than 180 and diastolic less than 100 to participate with therapy for ischemic stroke).
Continue to monitor neurologic status.�
Left nondominant hemiparesis: High risk for falls and sliding out of chair/bed. Safety reinforced.�
- Avoid using affected arm to help lift or pull patient as this will cause trauma to the shoulder.
Left hemisensory loss: makes patient at higher risk for falls.
Left Neglect: makes patient at increased risk for falls.� Will need therapy to work on scanning of environment for safe navigation.�
Morbid obesity: Continue to safety counselor patient about diet adjustments to control obesity. Body habitus and increased force to move body and extremities causes further difficulty with functional tasks.�
DVT Prophylaxis: Mechanical suggest enoxaparin for DVT prophylaxis
�
Thank you for allowing me to care for your patient. Please contact me with any questions or concerns.
Consultation
-
Date/Time Consultation Performed: 12/21/24
Requesting Provider: Dr. Mily Oneil
Performing Provider: Dr. Zia Juárez
Reason for Consultation: Stroke rehabilitation
[2024-12-21] MEDS: ZESTRIL 5 MG PO (07:49)
[2024-12-21] MEDS: PROTONIX 40 MG PO (07:49)
[2024-12-21] MEDS: PLAVIX 75 MG PO (07:49)
[2024-12-21] MEDS: FOLVITE 1 MG PO (07:49)
[2024-12-21] MEDS: LOW STRENGTH ASPIRIN 81 MG PO (07:49)
[2024-12-21] MEDS: THIAMINE INJECTION 200 MG IV ×2 (07:50→16:31)
--- NOTE | 2024-12-21 10:34 | W.PN.HOSP.TC ---
Today's Communication/Plan
-
dispo planning
Assessment / Plan
Assessment / Plan
Ms. Carol Key is a 69 yo woman with hx alcohol abuse presents to the ER after slid from chair, called daughter who noticed slurred speech.
On arrival to the emergency department the patient was noted to have left-sided ataxia and hemiballism with sensory loss on the left side upper and lower extremity. She is found to have an acute moderate-sized transcortical ischemic infarct in
the right parietal lobe and a small acute transcortical ischemic infarct in the right frontal lobe associated with cytotoxic edema. CTA of the head and neck was performed which shows complete occlusion of the proximal right ICA.
HEAD CT
IMPRESSION:
1. MODERATE SIZED ACUTE TRANSCORTICAL ISCHEMIC INFARCT in the right parietal lobe and small acute transcortical ischemic infarct in the right frontal lobe (right middle cerebral artery territory) with associated cytotoxic edema.
2. No CT evidence for acute intracranial hemorrhage.
HEAD/NECK CTA
IMPRESSION:
NECK CTA:
1. COMPLETE OCCLUSION of the PROXIMAL RIGHT ICA.
2. Less than 50% diameter stenosis in the proximal left ICA.
3. 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
4. Severe bilateral facet joint arthrosis in the cervical spine causing severe bilateral neural foraminal narrowing.
5. Mild multilevel spinal cord compression and central canal stenosis secondary to multilevel discogenic degenerative disease.
HEAD CTA:
1. Collateral blood supply from the left intracranial ICA reaching the right anterior and middle cerebral arteries.
2. Moderate calcific atherosclerotic plaque in the intracranial left ICA causing less than 50% diameter stenosis.
3. 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
4. Moderate hypoplasia of the P1 segment of the left posterior cerebral artery.
5. Moderate sized acute transcortical ischemic infarct in the right parietal lobe.
CXR
IMPRESSION:
Minor bibasilar subsegmental atelectasis.
MRI
IMPRESSION:
Restricted diffusion within the right frontoparietal region as well as multiple small foci of restricted diffusion more anteriorly within the right frontal lobe consistent with acute infarction. There is no evidence of hemorrhagic transformation.
# Acute transcortical ischemic infarct of the right parietal lobe and right frontal lobe
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
-out of window for tPA
-complete occlusion of ICA, therefore surgical intervention not an option
-Continue aspirin and Plavix daily x 21 days (day 4) then aspirin alone
-continue Lipitor (replaced simvastatin)
-Neurochecks
-s/p 24 hours permissive HTN, patient remains hypertensive. started on lisinopril
-appreciate Neurology consult
-PT/OT/ST
-Physiatry consult
Essential HTN
-start Lisinopril 5mg PO QD
# Alcohol use disorder
-Monitor closely for alcohol withdrawal symptoms and treat accordingly
#tobacco use - cessation educated provided, patient does not want a nicotine patch
# Hypothyroidism
- Levothyroxine continued
# Hyperlipidemia
- Simvastatin continued
#alcohol abuse
-Nicotine dependence
-nicotine patch
-alcohol protocol
-monitor MSAS score
# DVT prophylaxis
- SCDs
# CODE STATUS
- Full code
Anticipated Discharge: Within 24 hours
Subjective/Interval History
-
Date of Service: December 21, 2024
has some left knee pain that is chronic
Objective Data
-
Vital Signs:
Vital Signs
Temp Pulse Resp BP Pulse Ox
97.8 F 50 16 167/68 96
12/21/24 07:00 12/21/24 07:00 12/21/24 07:00 12/21/24 07:00 12/21/24 07:00
I&O
12/20/24 12/21/24 12/22/24
06:59 06:59 06:59
Intake Total 720 / 720 1440 / 1440
Output Total 550 / 550
Balance 170 / 170 1440 / 1440
Review of Systems
-
History Source: Patient
All other systems: Reviewed and negative
Physical Exam
-
General: No Apparent Distress
HEENT: PERRLA
Respiratory: Clear to Auscultation; Negative Wheezes
Cardiac: Regular Rhythm and S1/S2
GI: Soft and Nontender
Musculoskeletal: No Edema
Skin: Warm and Dry
Neuro: AO x 3 and Other (LUE pronator drift; improving strength )
Psych: Calm
Data Reviewed
-
Diagnostic Radiology: Report Reviewed by me
Labs: Labs Reviewed by me
[2024-12-21] MEDS: DICLOFENAC 1% TOPICAL GEL 100 GRAM TOPICAL (10:50)
--- NOTE | 2024-12-21 12:40 | W.DS.TRANS ---
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
-
Discharge Instructions:
Discharge Diagnosis/Procedures acute ischemic stroke
Diet Low Cholesterol
Activity As tolerated
Driving Restrictions As prior to admission
Bathing Restrictions None
Blood Work BMP in one week
Other Services PT,OT
Instructions:
Stand-Alone Forms:
Changes to Home Medications: Yes
Discharge Medications:
DC Medications w/original date entered in [facility]
simvastatin 40 mg tablet 40 mg PO DAILY High Cholesterol 05/29/14
levothyroxine 200 mcg tablet 200 mcg PO DAILY Thyroid 12/19/24
levothyroxine 25 mcg tablet 25 mcg PO DAILY Thyroid 12/19/24
Home Medication Changes
You are newly started on Aspirin and Plavix for stroke prevention. Take Aspirin and Plavix x 21 days total (17 more days) then aspirin daily
Stop Simvastatin, this is replaced with Atorvastatin
You are started on Lisinopril for blood pressure. Your labs need to be checked in one week. The dose may be adjusted by outpatient providers based on your blood pressure readings.
Pending Results: No
--- NOTE | 2024-12-21 12:40 | W.DCSUMMARY ---
Discharge Summary
Discharge Data
Date of Admission: 12/18/24
Date of Discharge: 12/22/24
-
Pending Results: No
Hospital Course
Discharging Physician : Dr. Mily Oneil
Disposition : Acute Rehab
Primary care physician : Dr. Veronica Duval
Principal Discharge diagnosis : Acute ischemic stroke
Hospital Course :
Ms. Carol Key is a 69 yo woman with hx alcohol abuse presents to the ER after slid from chair, called daughter who noticed slurred speech. On arrival to the emergency department the patient was noted to have left-sided ataxia and hemiballism
with sensory loss on the left side upper and lower extremity. Head CT with finding of moderate sized acute transcortical ischemic infarct. Head/Neck CTA with finding of complete occlusion of proximal right ICA. The ED provider spoke to stroke
neurology at [facility], Dr. Lane, who reported no tPA as patient was outside of time window. She was loaded with aspirin and plavix.
Patient was admitted to medicine with Neurology consulting. MRI the following morning confirmed CVA in right frontoparietal region as well as multiple small foci of restricted diffusion more anteriorly within the right frontal lobe consistent with
acute infarction. Patient was continued on Asa/Plavix with plans for 21 days total of dual anti platelet treatment followed by aspirin 81mg daily. Her Simvastatin is replaced with Atorvastatin. She was started on Lisinopril 5mg PO QD for
hypertension. She may need dose adjustments as outpatient. Repeat labs to monitor electrolytes to be obtained in one week.
She worked with PT and acute rehab recommended.
Time spent on discharge was 35 minutes.
Important imaging findings :
HEAD CT
IMPRESSION:
1. MODERATE SIZED ACUTE TRANSCORTICAL ISCHEMIC INFARCT in the right parietal lobe and small acute transcortical ischemic infarct in the right frontal lobe (right middle cerebral artery territory) with associated cytotoxic edema.
2. No CT evidence for acute intracranial hemorrhage.
HEAD/NECK CTA
IMPRESSION:
NECK CTA:
1. COMPLETE OCCLUSION of the PROXIMAL RIGHT ICA.
2. Less than 50% diameter stenosis in the proximal left ICA.
3. 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
4. Severe bilateral facet joint arthrosis in the cervical spine causing severe bilateral neural foraminal narrowing.
5. Mild multilevel spinal cord compression and central canal stenosis secondary to multilevel discogenic degenerative disease.
HEAD CTA:
1. Collateral blood supply from the left intracranial ICA reaching the right anterior and middle cerebral arteries.
2. Moderate calcific atherosclerotic plaque in the intracranial left ICA causing less than 50% diameter stenosis.
3. 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
4. Moderate hypoplasia of the P1 segment of the left posterior cerebral artery.
5. Moderate sized acute transcortical ischemic infarct in the right parietal lobe.
CXR
IMPRESSION:
Minor bibasilar subsegmental atelectasis.
MRI
IMPRESSION:
Restricted diffusion within the right frontoparietal region as well as multiple small foci of restricted diffusion more anteriorly within the right frontal lobe consistent with acute infarction. There is no evidence of hemorrhagic transformation.
Procedure findings :
Discharge Plan
-
Patient Disposition: Acute Rehab Facility
Discharge Diagnosis/Procedures: acute ischemic stroke
Diet: Low Cholesterol
Activity: As tolerated
Driving Restrictions: As prior to admission
Bathing Restrictions: None
Blood Work: BMP in one week
Other Services: PT and OT
Referrals:
Veronica Duval CRNP [Family Provider, Family Practice] - in less than 1 week
Additional Discharge Medication Instructions: You are newly started on Aspirin and Plavix for stroke prevention. Take Aspirin and Plavix x 21 days total (16 more days) then aspirin daily
Stop Simvastatin, this is replaced with Atorvastatin
You are started on Lisinopril for blood pressure. Your labs need to be checked in one week. The dose may be adjusted by outpatient providers based on your blood pressure readings.
Prescriptions:
New
atorvastatin 80 mg Tablet
80 mg PO QPM Qty: 30 0RF
nicotine 21 mg/24 hr Patch 24 Hour
21 mg transdermal DAILY Qty: 14 0RF
aspirin 81 mg Tablet,Chewable
81 mg PO DAILY Qty: 90 0RF
diclofenac sodium 1 % Gel
0 g topical TID Qty: 0 0RF
clopidogrel 75 mg Tablet
75 mg PO DAILY Qty: 16 0RF
pantoprazole 40 mg Tablet,Delayed Release (Dr/Ec)
40 mg PO DAILY Qty: 30 0RF
lisinopril 5 mg Tablet
5 mg PO DAILY Qty: 30 0RF
thiamine mononitrate (vit B1) 100 mg Tablet
100 mg PO DAILY Qty: 30 0RF
Continued
levothyroxine 25 mcg Tablet
25 mcg PO DAILY
Rx Instructions:
'1 tab by mouth daily, except wednesday and wednesday take 2 tabs (50 mcgs). With 200mcg tab'
levothyroxine 200 mcg Tablet
200 mcg PO DAILY
Discontinued
simvastatin 40 MG tablet
40 mg PO DAILY
Discharge Orders:
Discharge Patient (As Directed); Ordered 12/22/24
Ordered By: Mily Oneil
Discharge Date and Time
Print Language: YORUBA
--- NOTE | 2024-12-21 13:08 | CM ---
[facility] requested, referral placed in [facility] for review.
Attempted calls to [facility], left message
Spoke w/ Dr. Zaman Why, patient remains appropriate for acute rehab. Patient prefers a facility closer to [place] as her daughter lives there.
Additional referrals sent to [facility] ([place] and [place] locations) and [facility], awaiting determinations at this time
Updated patient bedside
Plan: Acute rehab, pending accepting facility
[2024-12-21] MEDS: DICLOFENAC 1% TOPICAL GEL 1 GRAM TOPICAL (16:31)
[2024-12-21] MEDS: LIPITOR 80 MG PO (16:32)
[2024-12-21] MEDS: DICLOFENAC 1% TOPICAL GEL TOPICAL (21:47)
[2024-12-22 03:30] VITALS: BP 163/58
[2024-12-22] MEDS: SYNTHROID 200 MCG PO (05:17)
[2024-12-22] MEDS: SYNTHROID 25 MCG PO (05:17)
[2024-12-22 07:27] VITALS: BP 167/78
[2024-12-22] MEDS: PLAVIX 75 MG PO (08:00)
[2024-12-22] MEDS: LOW STRENGTH ASPIRIN 81 MG PO (08:00)
[2024-12-22] MEDS: FOLVITE 1 MG PO (08:00)
[2024-12-22] MEDS: DICLOFENAC 1% TOPICAL GEL TOPICAL (08:00)
[2024-12-22] MEDS: PROTONIX 40 MG PO (08:00)
[2024-12-22] MEDS: VITAMIN B1 100 MG PO (08:00)
[2024-12-22] MEDS: ZESTRIL 5 MG PO (08:00)
--- NOTE | 2024-12-22 09:26 | CM ---
Spoke w/ [facility], there is a bed available for patient today. [facility] spoke w/ patient yesterday while daughter was at bedside. Patient agreeable to accept bed today. Per [facility], Dr. Zaman Why would like patient to be transferred early.
Updated hospitalist
IMM verbally reviewed, copy provided, copy on chart
[facility]
Report: [phone]

Plan: D/c to [facility] today
--- NOTE | 2024-12-22 10:05 | W.DS.TRANS ---
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
-
Discharge Instructions:
Discharge Diagnosis/Procedures acute ischemic stroke
Diet Low Cholesterol
Activity As tolerated
Driving Restrictions As prior to admission
Bathing Restrictions None
Blood Work BMP in one week
Other Services PT,OT
Instructions:
Stand-Alone Forms:
Changes to Home Medications: Yes
Discharge Medications:
DC Medications w/original date entered in [email or web address]
levothyroxine 200 mcg tablet 200 mcg PO DAILY Thyroid 12/19/24
levothyroxine 25 mcg tablet 25 mcg PO DAILY Thyroid 12/19/24
aspirin 81 mg chewable tablet 81 mg PO DAILY #90 tabs 12/21/24
atorvastatin 80 mg tablet 80 mg PO QPM #30 tabs 12/21/24
clopidogrel 75 mg tablet 75 mg PO DAILY #16 tabs 12/21/24
diclofenac sodium 1 % topical gel 0 g topical TID #0 grams 12/21/24
lisinopril 5 mg tablet 5 mg PO DAILY #30 tabs 12/21/24
nicotine 21 mg/24 hr daily transdermal patch 21 mg transdermal DAILY #14 ea 12/21/24
pantoprazole 40 mg tablet,delayed release 40 mg PO DAILY #30 tabs 12/21/24
thiamine mononitrate (vit B1) 100 mg tablet 100 mg PO DAILY #30 tabs 12/21/24
Home Medication Changes
You are newly started on Aspirin and Plavix for stroke prevention. Take Aspirin and Plavix x 21 days total (16 more days) then aspirin daily
Stop Simvastatin, this is replaced with Atorvastatin
You are started on Lisinopril for blood pressure. Your labs need to be checked in one week. The dose may be adjusted by outpatient providers based on your blood pressure readings.
Pending Results: No
[2024-12-22 11:58] VITALS: BP 156/88
== END 2024-12-22 14:49 | DRG 64 ==
LOC: 4 WEST ACU 22:10
PROVIDERS: Nurse Practitioner Family; Registered Nurse; ADMITTING PHYSICIAN Internal Medicine; ATTENDING PHYSICIAN Student in an Organized Health Care Education/Training Program; CONSULT PHYSICIAN Physical Medicine & Rehabilitation; CONSULT PHYSICIAN Psychiatry & Neurology Neurology; EMERGENCY PHYSICIAN Emergency Medicine; FAMILY PHYSICIAN Nurse Practitioner Family
DX: I63.511 Cerebral infarction due to unspecified occlusion or stenosis of right middle cerebral artery (principal); G93.6 Cerebral edema; R41.4 Neurologic neglect syndrome; F10.139 Alcohol abuse with withdrawal, unspecified; F17.213 Nicotine dependence, cigarettes, with withdrawal; G81.94 Hemiplegia, unspecified affecting left nondominant side; J98.11 Atelectasis; M50.022 Cervical disc disorder at C5-C6 level with myelopathy; R41.82 Altered mental status, unspecified; E03.9 Hypothyroidism, unspecified; E78.00 Pure hypercholesterolemia, unspecified; E66.01 Morbid (severe) obesity due to excess calories; E78.49 Other hyperlipidemia; M48.02 Spinal stenosis, cervical region; R27.0 Ataxia, unspecified; R47.81 Slurred speech; G25.5 Other chorea; I10 Essential (primary) hypertension; W07.XXXA Fall from chair, initial encounter; Y93.89 Activity, other specified; Y92.009 Unspecified place in unspecified non-institutional (private) residence as the place of occurrence of the external cause; Z60.2 Problems related to living alone; Z96.652 Presence of left artificial knee joint; Z79.890 Hormone replacement therapy; Z68.35 Body mass index [BMI] 35.0-35.9, adult; Z91.81 History of falling
CPT/HCPCS: 0042T; 70450; 70496; 70498; 70551; 71045; 80048; 80053; 80061; 80306; 81003; 81015; 82010; 82077; 82607; 82746; 82962; 82977; 83036; 83735; 84100; 85025; 85027; 85610; 85652; 85730; 92610; 93005; 96360; 97116; 97129; 97163; 97167; 97535; 99285; 99406; Q9967

== ENCOUNTER 2025-02-08 07:22 | Outpatient (RCR) | payer MEDICARE, SELFPAY | END 2025-02-08 23:59 | disposition home or self-care (01) | LOC: RPT 07:22 | PROVIDERS: ATTENDING PHYSICIAN Nurse Practitioner Family | DX: I69.398 Other sequelae of cerebral infarction (principal); R53.1 Weakness; R26.9 Unspecified abnormalities of gait and mobility; Z73.6 Limitation of activities due to disability | CPT/HCPCS: 97112; 97163; 97167; 97530 ==

== ENCOUNTER 2025-03-13 10:46 | Outpatient (RCR) | payer MEDICARE, SELFPAY | END 2025-03-13 23:59 | disposition home or self-care (01) | LOC: RPT 10:46 | PROVIDERS: ATTENDING PHYSICIAN Nurse Practitioner Family | DX: I69.398 Other sequelae of cerebral infarction (principal); R53.1 Weakness; R26.9 Unspecified abnormalities of gait and mobility; R26.89 Other abnormalities of gait and mobility; Z73.6 Limitation of activities due to disability | CPT/HCPCS: 97110; 97112; 97116; 97530; 97537 ==

== ENCOUNTER 2025-04-10 08:19 | Outpatient (RCR) | payer MEDICARE, SELFPAY | END 2025-04-10 23:59 | disposition home or self-care (01) | LOC: RPT 08:19 | PROVIDERS: ATTENDING PHYSICIAN Nurse Practitioner Family | DX: I69.398 Other sequelae of cerebral infarction (principal); R53.1 Weakness; Z73.6 Limitation of activities due to disability; R26.9 Unspecified abnormalities of gait and mobility; R26.89 Other abnormalities of gait and mobility; W07.XXXD Fall from chair, subsequent encounter | CPT/HCPCS: 97110; 97112; 97116; 97530; 97535; 97537 ==

== ENCOUNTER 2025-05-11 07:06 | Outpatient (RCR) | payer MEDICARE, SELFPAY | END 2025-05-11 23:59 | disposition home or self-care (01) | LOC: RPT 07:06 | PROVIDERS: ATTENDING PHYSICIAN Nurse Practitioner Family | DX: I69.398 Other sequelae of cerebral infarction (principal); R53.1 Weakness; R26.9 Unspecified abnormalities of gait and mobility; Z73.6 Limitation of activities due to disability; W07.XXXD Fall from chair, subsequent encounter; R26.89 Other abnormalities of gait and mobility | CPT/HCPCS: 97110; 97112; 97530; 97535 ==

== ENCOUNTER 2025-06-13 07:27 | Outpatient (RCR) | payer MEDICARE, SELFPAY | END 2025-06-13 23:59 | disposition home or self-care (01) | LOC: RPT 07:27 | PROVIDERS: ATTENDING PHYSICIAN Nurse Practitioner Family | DX: I69.398 Other sequelae of cerebral infarction (principal); R53.1 Weakness; Z73.6 Limitation of activities due to disability; R26.89 Other abnormalities of gait and mobility; W07.XXXD Fall from chair, subsequent encounter | CPT/HCPCS: 97110; 97112; 97530; 97535 ==